=== PATIENT | male | born 1960 | race Caucasian/White ===

== ENCOUNTER 2018-02-21 17:26 | Emergency (ER) | payer OTHER ==
[~2018-02-21] VITALS: Ht 175.3 cm; Wt 52.7 kg
[2018-02-21 18:10] VITALS: BP 156/94; PULSE 91; RESP 18; TEMP 98.2
--- NOTE | 2018-02-21 18:18 | PD ---
HPI Chief Complaint: Psychiatric Symptoms Time Seen by Provider: 17:58 Travel History International Travel<30 days: No Contact w/Intl Traveler<30days: No History of Present Illness HPI Patient is 57-year-old male presenting to the emergency department for psychiatric evaluation under Chin act. Per the Chin act report patient reported that he was tired of living, he states that he had a knife was going to kill himself. He reports that he was upset because his girlfriend who has schizophrenia has not been taking her medications because they cannot afford them. Patient reports that he tried to commit suicide last week using the same method however he has no cuts or knife gore on him. He reports a history of depression, tobacco use but denies any illicit drug use. He denies any other medical history. He denies any hallucinations or homicidal ideations. 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 [facility] Past Medical History Medical History: Denies Significant Hx Social History Alcohol Use: Yes Tobacco Use: Yes Substance Use: No Allergies-Medications (Allergen,Severity, Reaction): Coded Allergies: Penicillins (Verified Allergy, Unknown, 02/21/18) Reported Meds & Prescriptions Reported Meds & Active Scripts Active No Active Prescriptions or Reported Medications Review of Systems Except as stated in HPI: all other systems reviewed are Neg Psychiatric: Positive: Depression, Suicidal Ideations, Substance Abuse Physical Exam Narrative GENERAL: Well-developed, well-nourished, alert male. Presenting in no acute distress. SKIN: Warm and dry. HEAD: Atraumatic. Normocephalic. EYES: Pupils equal and round. No scleral icterus. No injection or drainage. ENT: No nasal bleeding or discharge. Mucous membranes pink and moist. NECK: Trachea midline. No JVD. CARDIOVASCULAR: Regular rate and rhythm. RESPIRATORY: No accessory muscle use. Clear to auscultation. Breath sounds equal bilaterally. GASTROINTESTINAL: Abdomen soft, non-tender, nondistended. Hepatic and splenic margins not palpable. MUSCULOSKELETAL: Extremities without clubbing, cyanosis, or edema. No obvious deformities. NEUROLOGICAL: Awake and alert. No obvious cranial nerve deficits. Motor grossly within normal limits. Five out of 5 muscle strength in the arms and legs. Normal speech. PSYCHIATRIC: Depressed mood and affect; insight and judgment normal. Data Data Last Documented VS Vital Signs Date Time Temp Pulse Resp B/P (MAP) Pulse Ox O2 Delivery O2 Flow Rate FiO2 02/22/18 06:31 97.2 91 20 191/112 (138) 93 02/22/18 00:58 Room Air Orders Orders Complete Blood Count With Diff (02/21/18 17:57) Comprehensive Metabolic Panel (02/21/18 17:57) Thyroid Stimulating Hormone (02/21/18 17:57) Psych Screen (02/21/18 17:57) Drug Screen, Random Urine (02/21/18 17:57) Alcohol (Ethanol) (02/21/18 17:57) Ibuprofen (Motrin) (02/21/18 18:45) Cyclobenzaprine (Flexeril) (02/21/18 18:45) Diet Regular Basic (02/21/18 Dinner) Alcohol Withdrawal Asmt-Ciwa ONCE (02/21/18 18:33) Acetaminophen (Tylenol) (02/21/18 18:45) Ibuprofen (Motrin) (02/21/18 18:45) Albuterol Neb (Albuterol Neb) (02/21/18 18:45) Flumazenil Inj (Romazicon Inj) (02/21/18 18:45) Lorazepam (Ativan) (02/21/18 18:45) Lorazepam Inj (Ativan Inj) (02/21/18 18:45) Lorazepam (Ativan) (02/21/18 18:45) Lorazepam Inj (Ativan Inj) (02/21/18 18:45) Lorazepam Inj (Ativan Inj) (02/21/18 18:45) Lorazepam Inj (Ativan Inj) (02/21/18 18:45) Ibuprofen (Motrin) (02/22/18 01:30) Diet Regular Basic (02/22/18 Breakfast) Diet Regular Basic (02/22/18 Lunch) Labs Laboratory Tests Test 02/21/18 18:04 02/22/18 01:00 White Blood Count 5.8 TH/MM3 Red Blood Count 4.32 MIL/MM3 Hemoglobin 14.2 GM/DL Hematocrit 41.8 % Mean Corpuscular Volume 96.9 FL Mean Corpuscular Hemoglobin 32.9 PG Mean Corpuscular Hemoglobin Concent 34.0 % Red Cell Distribution Width 13.4 % Platelet Count 160 TH/MM3 Mean Platelet Volume 8.4 FL Neutrophils (%) (Auto) 41.3 % Lymphocytes (%) (Auto) 43.1 % Monocytes (%) (Auto) 9.9 % Eosinophils (%) (Auto) 4.3 % Basophils (%) (Auto) 1.4 % Neutrophils # (Auto) 2.4 TH/MM3 Lymphocytes # (Auto) 2.5 TH/MM3 Monocytes # (Auto) 0.6 TH/MM3 Eosinophils # (Auto) 0.3 TH/MM3 Basophils # (Auto) 0.1 TH/MM3 CBC Comment DIFF FINAL Differential Comment Blood Urea Nitrogen 5 MG/DL Creatinine 0.71 MG/DL Random Glucose 87 MG/DL Total Protein 8.1 GM/DL Albumin 3.3 GM/DL Calcium Level 8.7 MG/DL Alkaline Phosphatase 279 U/L Aspartate Amino Transf (AST/SGOT) 116 U/L Alanine Aminotransferase (ALT/SGPT) 70 U/L Total Bilirubin 0.6 MG/DL Sodium Level 138 MEQ/L Potassium Level 3.7 MEQ/L Chloride Level 103 MEQ/L Carbon Dioxide Level 23.4 MEQ/L Anion Gap 12 MEQ/L Estimat Glomerular Filtration Rate 115 ML/MIN Thyroid Stimulating Hormone 3rd Gen 1.990 uIU/ML Ethyl Alcohol Level 298 MG/DL Urine Opiates Screen NEG Urine Barbiturates Screen NEG Urine Amphetamines Screen NEG Urine Benzodiazepines Screen NEG Urine Cocaine Screen NEG Urine Cannabinoids Screen NEG MDM Medical Decision Making Medical Screen Exam Complete: Yes Emergency Medical Condition: Yes Interpretation(s) Laboratory Tests Test 02/21/18 18:04 02/22/18 01:00 White Blood Count 5.8 TH/MM3 Red Blood Count 4.32 MIL/MM3 Hemoglobin 14.2 GM/DL Hematocrit 41.8 % Mean Corpuscular Volume 96.9 FL Mean Corpuscular Hemoglobin 32.9 PG Mean Corpuscular Hemoglobin Concent 34.0 % Red Cell Distribution Width 13.4 % Platelet Count 160 TH/MM3 Mean Platelet Volume 8.4 FL Neutrophils (%) (Auto) 41.3 % Lymphocytes (%) (Auto) 43.1 % Monocytes (%) (Auto) 9.9 % Eosinophils (%) (Auto) 4.3 % Basophils (%) (Auto) 1.4 % Neutrophils # (Auto) 2.4 TH/MM3 Lymphocytes # (Auto) 2.5 TH/MM3 Monocytes # (Auto) 0.6 TH/MM3 Eosinophils # (Auto) 0.3 TH/MM3 Basophils # (Auto) 0.1 TH/MM3 CBC Comment DIFF FINAL Differential Comment Blood Urea Nitrogen 5 MG/DL Creatinine 0.71 MG/DL Random Glucose 87 MG/DL Total Protein 8.1 GM/DL Albumin 3.3 GM/DL Calcium Level 8.7 MG/DL Alkaline Phosphatase 279 U/L Aspartate Amino Transf (AST/SGOT) 116 U/L Alanine Aminotransferase (ALT/SGPT) 70 U/L Total Bilirubin 0.6 MG/DL Sodium Level 138 MEQ/L Potassium Level 3.7 MEQ/L Chloride Level 103 MEQ/L Carbon Dioxide Level 23.4 MEQ/L Anion Gap 12 MEQ/L Estimat Glomerular Filtration Rate 115 ML/MIN Thyroid Stimulating Hormone 3rd Gen 1.990 uIU/ML Ethyl Alcohol Level 298 MG/DL Urine Opiates Screen NEG Urine Barbiturates Screen NEG Urine Amphetamines Screen NEG Urine Benzodiazepines Screen NEG Urine Cocaine Screen NEG Urine Cannabinoids Screen NEG Vital Signs Date Time Temp Pulse Resp B/P (MAP) Pulse Ox O2 Delivery O2 Flow Rate FiO2 02/21/18 18:10 98.2 91 18 156/94 (114) Differential Diagnosis Mood disorder versus substance abuse versus intoxication versus metabolic abnormality versus psychosis versus other Narrative Course Patient is 57-year-old male presenting under Chin act for psychiatric evaluation. He does report drinking alcohol daily, he had 4 beers today. Mental health screening discussed with the patient. Psychiatric screen ordered. Patient reported pain in his left shoulder. Ibuprofen and Flexeril ordered. Patient was placed on CIWA protocol. Labs reviewed, no acute findings identified. Patient is medically clear for psychiatric evaluation. Blood alcohol level is elevated 268. Diagnosis Primary Impression: Medical clearance for psychiatric admission Additional Impression: Alcohol intoxication Qualified Codes: F10.920 - Alcohol use, unspecified with intoxication, uncomplicated Scripts No Active Prescriptions or Reported Meds Condition: Jannie Vazquez Feb 21, 2018 18:18
[2018-02-21 18:34] LABS: AUTOMATED NEUTROPHIL # 2.4 TH/MM3 (1.8-7.7); BASOPHIL # 0.1 TH/MM3 (0-0.2); BASOPHIL % 1.4 % (0.0-2.0); EOSINOPHIL # 0.3 TH/MM3 (0-0.4); EOSINOPHIL % 4.3 % (0.0-4.0); HEMATOCRIT 41.8 % (39.0-51.0); HEMOGLOBIN 14.2 GM/DL (13.0-17.0); LYMPH % 43.1 % (9.0-44.0); LYMPHOCYTE # 2.5 TH/MM3 (1.0-4.8); MEAN CELL VOLUME 96.9 FL (80.0-100.0); MEAN CORPUSCULAR HEMOGLOBIN 32.9 PG (27.0-34.0); MEAN PLATELET VOLUME 8.4 FL (7.0-11.0); MONO % 9.9 % (0.0-8.0); MONOCYTE # 0.6 TH/MM3 (0-0.9); NEUT % 41.3 % (16.0-70.0); PLATELET COUNT 160 TH/MM3 (150-450); RED BLOOD COUNT 4.32 MIL/MM3 (4.50-5.90); RED CELL DISTRIBUTION WIDTH 13.4 % (11.6-17.2); WHITE BLOOD COUNT 5.8 TH/MM3 (4.0-11.0)
[2018-02-21] MEDS ORDERED: RESP: ALBUTEROL 2.5 MG/3 ML NEB (PRN) NEB (18:45)
[2018-02-21] MEDS ORDERED: IBUPROFEN 600 MG TAB PO PRN (18:45)
[2018-02-21] MEDS ORDERED: FLUMAZENIL 0.5 MG/5 ML VIAL IV PUSH PRN (18:45)
[2018-02-21] MEDS ORDERED: CYCLOBENZAPRINE HCL 10 MG TAB PO ONE (18:45)
[2018-02-21] MEDS ORDERED: IBUPROFEN 800 MG TAB PO ONE (18:45)
[2018-02-21] MEDS ORDERED: LORazepam 1 MG TAB PO PRN (18:45)
[2018-02-21] MEDS ORDERED: LORazepam 2 MG/ML VIAL IV PUSH PRN ×4 (18:45)
[2018-02-21 18:52] LABS: ALBUMIN 3.3 GM/DL (3.4-5.0); AST (GOT) 116 U/L (15-37); BICARBONATE 23.4 MEQ/L (21.0-32.0); BLOOD UREA NITROGEN 5 MG/DL (7-18); CALCIUM 8.7 MG/DL (8.5-10.1); CHLORIDE 103 MEQ/L (98-107); CREATININE 0.71 MG/DL (0.60-1.30); GLOMERULAR FILTRATION RATE 115 ML/MIN (>89); GLUCOSE,RANDOM 87 MG/DL (74-106); SODIUM (NA) 138 MEQ/L (136-145)
[2018-02-21 19:04] LABS: ALKALINE PHOSPHATASE 279 U/L (45-117); ALT (GPT) 70 U/L (12-78); TOTAL BILIRUBIN ADULT 0.6 MG/DL (0.2-1.0); TOTAL PROTEIN 8.1 GM/DL (6.4-8.2)
[2018-02-22] VITALS (7 sets, daily range): BP systolic 161–201; BP diastolic 104–124; PULSE 73–103; RESP 16–20; TEMP 97.2–98.7; O2SAT 93–96
[2018-02-22] MEDS ORDERED: IBUPROFEN 600 MG TAB PO ONE (01:30)
[2018-02-22] MEDS: ACETAMINOPHEN 325 MG TAB PO PRN ×2 (01:51→21:49)
[2018-02-22] MEDS: LORazepam 2 MG TAB PO PRN ×2 (01:51→06:35)
[2018-02-22] MEDS ORDERED: LORazepam 2 MG/ML VIAL IM ONE (18:45)
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
[2018-02-22] MEDS ORDERED: cloNIDine HCL 0.2 MG TAB PO ONE (20:15)
[2018-02-23 00:50] VITALS: BP 169/110; PULSE 90; RESP 16; O2SAT 96
[2018-02-23 02:38] VITALS: BP 140/98; PULSE 86; RESP 16; O2SAT 97
[2018-02-23] MEDS: LORazepam 2 MG TAB PO PRN (08:55)
[2018-02-23 08:58] VITALS: BP 149/99; PULSE 122; RESP 21; O2SAT 97
[2018-02-23] MEDS ORDERED: LISINOPRIL 10 MG TAB PO ONE (09:15)
[2018-02-23 10:11] VITALS: BP 131/98; PULSE 130; RESP 19; O2SAT 98
[2018-02-23 15:09] VITALS: BP 113/86; PULSE 94; RESP 17; O2SAT 98
[2018-02-23 20:17] VITALS: BP 122/72; PULSE 88; RESP 18; TEMP 98; O2SAT 98
== END 2018-02-23 20:24 | disposition home or self-care (01) ==
LOC: NEDAMB 17:26 → NEPD 02-23 20:24
DX: F10.129 Alcohol abuse with intoxication, unspecified (principal); Y90.8 Blood alcohol level of 240 mg/100 ml or more; F32.9 Major depressive disorder, single episode, unspecified; M25.512 Pain in left shoulder; F17.200 Nicotine dependence, unspecified, uncomplicated
CPT/HCPCS: 80053; 80307; 84443; 85025; 96372; 99283; J2060

== ENCOUNTER 2018-02-27 16:37 | Emergency (ER) | payer SELFPAY ==
[~2018-02-27] VITALS: Ht 175.3 cm; Wt 55.0 kg
[2018-02-27 17:25] VITALS: BP 164/99; PULSE 77; RESP 20; TEMP 97.5; O2SAT 97
[2018-02-27 17:35] VITALS: BP 145/94; PULSE 78; RESP 16; TEMP 98.7; O2SAT 98
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
[2018-02-27] MEDS ORDERED: LORazepam 2 MG TAB PO PRN (18:30)
[2018-02-27] MEDS ORDERED: FLUMAZENIL 0.5 MG/5 ML VIAL IV PUSH PRN (18:30)
[2018-02-27] MEDS ORDERED: LORazepam 2 MG/ML VIAL IV PUSH PRN ×4 (18:30)
[2018-02-27] MEDS ORDERED: LORazepam 1 MG TAB PO PRN (18:30)
[2018-02-27 18:50] LABS: AUTOMATED NEUTROPHIL # 2.7 TH/MM3 (1.8-7.7); BASOPHIL % 0.3 % (0.0-2.0); EOSINOPHIL # 0.1 TH/MM3 (0-0.4); EOSINOPHIL % 2.5 % (0.0-4.0); HEMATOCRIT 38.5 % (39.0-51.0); HEMOGLOBIN 13.4 GM/DL (13.0-17.0); LYMPH % 39.8 % (9.0-44.0); LYMPHOCYTE # 2.3 TH/MM3 (1.0-4.8); MEAN CELL VOLUME 97.1 FL (80.0-100.0); MEAN CORPUSCULAR HEMOGLOBIN 33.8 PG (27.0-34.0); MEAN CORPUSCULAR HGB CONC 34.9 % (32.0-36.0); MEAN PLATELET VOLUME 8.9 FL (7.0-11.0); MONO % 10.4 % (0.0-8.0); MONOCYTE # 0.6 TH/MM3 (0-0.9); PLATELET COUNT 175 TH/MM3 (150-450); RED BLOOD COUNT 3.97 MIL/MM3 (4.50-5.90); RED CELL DISTRIBUTION WIDTH 13.4 % (11.6-17.2); WHITE BLOOD COUNT 5.8 TH/MM3 (4.0-11.0)
[2018-02-27 19:21] LABS: AST (GOT) 102 U/L (15-37); BICARBONATE 23.2 MEQ/L (21.0-32.0); BLOOD UREA NITROGEN 7 MG/DL (7-18); CHLORIDE 103 MEQ/L (98-107); CREATININE 0.67 MG/DL (0.60-1.30); GLOMERULAR FILTRATION RATE 123 ML/MIN (>89); GLUCOSE,RANDOM 84 MG/DL (74-106); SODIUM (NA) 138 MEQ/L (136-145)
[2018-02-27 19:33] LABS: ALKALINE PHOSPHATASE 215 U/L (45-117); ALT (GPT) 61 U/L (12-78); TOTAL BILIRUBIN ADULT 0.3 MG/DL (0.2-1.0); TOTAL PROTEIN 7.6 GM/DL (6.4-8.2)
[2018-02-27 19:42] LABS: ACETAMINOPHEN LESS THAN 2.0 MCG/ML (10.0-30.0)
--- NOTE | 2018-02-27 20:33 | PD ---
Physical Exam Date Seen by Provider: Feb 27, 2018 Time Seen by Provider: 20:31 Data Data Last Documented VS Vital Signs Date Time Temp Pulse Resp B/P (MAP) Pulse Ox O2 Delivery O2 Flow Rate FiO2 02/27/18 17:35 98.7 78 16 145/94 (111) 98 02/27/18 17:25 Room Air Orders Orders Complete Blood Count With Diff (02/27/18 18:14) Comprehensive Metabolic Panel (02/27/18 18:14) Thyroid Stimulating Hormone (02/27/18 18:14) Psych Screen (02/27/18 18:14) Drug Screen, Random Urine (02/27/18 18:14) Alcohol (Ethanol) (02/27/18 18:14) Salicylates (Aspirin) (02/27/18 18:14) Tylenol (Acetaminophen) (02/27/18 18:14) Alcohol Withdrawal Asmt-Ciwa ONCE (02/27/18 18:23) Flumazenil Inj (Romazicon Inj) (02/27/18 18:30) Lorazepam (Ativan) (02/27/18 18:30) Lorazepam Inj (Ativan Inj) (02/27/18 18:30) Lorazepam (Ativan) (02/27/18 18:30) Lorazepam Inj (Ativan Inj) (02/27/18 18:30) Lorazepam Inj (Ativan Inj) (02/27/18 18:30) Lorazepam Inj (Ativan Inj) (02/27/18 18:30) Labs Laboratory Tests Test 02/27/18 18:30 White Blood Count 5.8 TH/MM3 Red Blood Count 3.97 MIL/MM3 Hemoglobin 13.4 GM/DL Hematocrit 38.5 % Mean Corpuscular Volume 97.1 FL Mean Corpuscular Hemoglobin 33.8 PG Mean Corpuscular Hemoglobin Concent 34.9 % Red Cell Distribution Width 13.4 % Platelet Count 175 TH/MM3 Mean Platelet Volume 8.9 FL Neutrophils (%) (Auto) 47.0 % Lymphocytes (%) (Auto) 39.8 % Monocytes (%) (Auto) 10.4 % Eosinophils (%) (Auto) 2.5 % Basophils (%) (Auto) 0.3 % Neutrophils # (Auto) 2.7 TH/MM3 Lymphocytes # (Auto) 2.3 TH/MM3 Monocytes # (Auto) 0.6 TH/MM3 Eosinophils # (Auto) 0.1 TH/MM3 Basophils # (Auto) 0.0 TH/MM3 CBC Comment DIFF FINAL Differential Comment Blood Urea Nitrogen 7 MG/DL Creatinine 0.67 MG/DL Random Glucose 84 MG/DL Total Protein 7.6 GM/DL Albumin 3.0 GM/DL Calcium Level 8.0 MG/DL Alkaline Phosphatase 215 U/L Aspartate Amino Transf (AST/SGOT) 102 U/L Alanine Aminotransferase (ALT/SGPT) 61 U/L Total Bilirubin 0.3 MG/DL Sodium Level 138 MEQ/L Potassium Level 3.7 MEQ/L Chloride Level 103 MEQ/L Carbon Dioxide Level 23.2 MEQ/L Anion Gap 12 MEQ/L Estimat Glomerular Filtration Rate 123 ML/MIN Thyroid Stimulating Hormone 3rd Gen 0.529 uIU/ML Salicylates Level 6.5 MG/DL Acetaminophen Level LESS THAN 2.0 MCG/ML Ethyl Alcohol Level 326 MG/DL [facility] Medical Record Reviewed: Yes Supervised Visit with ALLISON: No Interpretation(s) Laboratory Tests Test 02/27/18 18:30 White Blood Count 5.8 TH/MM3 Red Blood Count 3.97 MIL/MM3 Hemoglobin 13.4 GM/DL Hematocrit 38.5 % Mean Corpuscular Volume 97.1 FL Mean Corpuscular Hemoglobin 33.8 PG Mean Corpuscular Hemoglobin Concent 34.9 % Red Cell Distribution Width 13.4 % Platelet Count 175 TH/MM3 Mean Platelet Volume 8.9 FL Neutrophils (%) (Auto) 47.0 % Lymphocytes (%) (Auto) 39.8 % Monocytes (%) (Auto) 10.4 % Eosinophils (%) (Auto) 2.5 % Basophils (%) (Auto) 0.3 % Neutrophils # (Auto) 2.7 TH/MM3 Lymphocytes # (Auto) 2.3 TH/MM3 Monocytes # (Auto) 0.6 TH/MM3 Eosinophils # (Auto) 0.1 TH/MM3 Basophils # (Auto) 0.0 TH/MM3 CBC Comment DIFF FINAL Differential Comment Blood Urea Nitrogen 7 MG/DL Creatinine 0.67 MG/DL Random Glucose 84 MG/DL Total Protein 7.6 GM/DL Albumin 3.0 GM/DL Calcium Level 8.0 MG/DL Alkaline Phosphatase 215 U/L Aspartate Amino Transf (AST/SGOT) 102 U/L Alanine Aminotransferase (ALT/SGPT) 61 U/L Total Bilirubin 0.3 MG/DL Sodium Level 138 MEQ/L Potassium Level 3.7 MEQ/L Chloride Level 103 MEQ/L Carbon Dioxide Level 23.2 MEQ/L Anion Gap 12 MEQ/L Estimat Glomerular Filtration Rate 123 ML/MIN Thyroid Stimulating Hormone 3rd Gen 0.529 uIU/ML Salicylates Level 6.5 MG/DL Acetaminophen Level LESS THAN 2.0 MCG/ML Ethyl Alcohol Level 326 MG/DL Differential Diagnosis MDM: High Differential diagnoses: Schizophrenia, schizoaffective disorder, bipolar, anxiety, depression, adjustment reaction, mood disorder NOS, ODD, depressive disorder NOS, dementia, dementia with agitation, psychosis NOS, substance induced mood disorder, DMDD, Asperger syndrome, infection,electrolyte abnormality, malingering. Narrative Course Mental health screening discussed with the patient. Psychiatric screen ordered. The patient's been medically cleared. This is medical clearance for psychiatric admission, alcohol intoxication Diagnosis Primary Impression: Medical clearance for psychiatric admission Additional Impression: Alcohol intoxication Scripts No Active Prescriptions or Reported Meds Condition: Stable Prabhakar El Feb 27, 2018 20:33
[2018-02-27 23:53] VITALS: BP 135/75; PULSE 106; RESP 18; O2SAT 97
--- NOTE | 2018-02-28 10:30 | PD ---
Physical Exam Date Seen by Provider: Feb 28, 2018 Time Seen by Provider: 10:27 Narrative Patient is a 57-year-old male that presented to emerge department voluntarily for psychiatric evaluation. Please see previous notes for full H&P. Data Data Last Documented VS Vital Signs Date Time Temp Pulse Resp B/P (MAP) Pulse Ox O2 Delivery O2 Flow Rate FiO2 02/27/18 23:53 106 18 135/75 (95) 97 Room Air 02/27/18 17:35 98.7 Orders Orders Complete Blood Count With Diff (02/27/18 18:14) Comprehensive Metabolic Panel (02/27/18 18:14) Thyroid Stimulating Hormone (02/27/18 18:14) Psych Screen (02/27/18 18:14) Drug Screen, Random Urine (02/27/18 18:14) Alcohol (Ethanol) (02/27/18 18:14) Salicylates (Aspirin) (02/27/18 18:14) Tylenol (Acetaminophen) (02/27/18 18:14) Alcohol Withdrawal Asmt-Ciwa ONCE (02/27/18 18:23) Flumazenil Inj (Romazicon Inj) (02/27/18 18:30) Lorazepam (Ativan) (02/27/18 18:30) Lorazepam Inj (Ativan Inj) (02/27/18 18:30) Lorazepam (Ativan) (02/27/18 18:30) Lorazepam Inj (Ativan Inj) (02/27/18 18:30) Lorazepam Inj (Ativan Inj) (02/27/18 18:30) Lorazepam Inj (Ativan Inj) (02/27/18 18:30) Diet Regular Basic (02/28/18 Breakfast) Ed Discharge Order (02/28/18 10:26) Labs Laboratory Tests Test 02/27/18 18:30 White Blood Count 5.8 TH/MM3 Red Blood Count 3.97 MIL/MM3 Hemoglobin 13.4 GM/DL Hematocrit 38.5 % Mean Corpuscular Volume 97.1 FL Mean Corpuscular Hemoglobin 33.8 PG Mean Corpuscular Hemoglobin Concent 34.9 % Red Cell Distribution Width 13.4 % Platelet Count 175 TH/MM3 Mean Platelet Volume 8.9 FL Neutrophils (%) (Auto) 47.0 % Lymphocytes (%) (Auto) 39.8 % Monocytes (%) (Auto) 10.4 % Eosinophils (%) (Auto) 2.5 % Basophils (%) (Auto) 0.3 % Neutrophils # (Auto) 2.7 TH/MM3 Lymphocytes # (Auto) 2.3 TH/MM3 Monocytes # (Auto) 0.6 TH/MM3 Eosinophils # (Auto) 0.1 TH/MM3 Basophils # (Auto) 0.0 TH/MM3 CBC Comment DIFF FINAL Differential Comment Blood Urea Nitrogen 7 MG/DL Creatinine 0.67 MG/DL Random Glucose 84 MG/DL Total Protein 7.6 GM/DL Albumin 3.0 GM/DL Calcium Level 8.0 MG/DL Alkaline Phosphatase 215 U/L Aspartate Amino Transf (AST/SGOT) 102 U/L Alanine Aminotransferase (ALT/SGPT) 61 U/L Total Bilirubin 0.3 MG/DL Sodium Level 138 MEQ/L Potassium Level 3.7 MEQ/L Chloride Level 103 MEQ/L Carbon Dioxide Level 23.2 MEQ/L Anion Gap 12 MEQ/L Estimat Glomerular Filtration Rate 123 ML/MIN Thyroid Stimulating Hormone 3rd Gen 0.529 uIU/ML Salicylates Level 6.5 MG/DL Acetaminophen Level LESS THAN 2.0 MCG/ML Ethyl Alcohol Level 326 MG/DL [facility] Medical Record Reviewed: Yes Supervised Visit with ALLISON: No Interpretation(s) Laboratory Tests Test 02/27/18 18:30 White Blood Count 5.8 TH/MM3 Red Blood Count 3.97 MIL/MM3 Hemoglobin 13.4 GM/DL Hematocrit 38.5 % Mean Corpuscular Volume 97.1 FL Mean Corpuscular Hemoglobin 33.8 PG Mean Corpuscular Hemoglobin Concent 34.9 % Red Cell Distribution Width 13.4 % Platelet Count 175 TH/MM3 Mean Platelet Volume 8.9 FL Neutrophils (%) (Auto) 47.0 % Lymphocytes (%) (Auto) 39.8 % Monocytes (%) (Auto) 10.4 % Eosinophils (%) (Auto) 2.5 % Basophils (%) (Auto) 0.3 % Neutrophils # (Auto) 2.7 TH/MM3 Lymphocytes # (Auto) 2.3 TH/MM3 Monocytes # (Auto) 0.6 TH/MM3 Eosinophils # (Auto) 0.1 TH/MM3 Basophils # (Auto) 0.0 TH/MM3 CBC Comment DIFF FINAL Differential Comment Blood Urea Nitrogen 7 MG/DL Creatinine 0.67 MG/DL Random Glucose 84 MG/DL Total Protein 7.6 GM/DL Albumin 3.0 GM/DL Calcium Level 8.0 MG/DL Alkaline Phosphatase 215 U/L Aspartate Amino Transf (AST/SGOT) 102 U/L Alanine Aminotransferase (ALT/SGPT) 61 U/L Total Bilirubin 0.3 MG/DL Sodium Level 138 MEQ/L Potassium Level 3.7 MEQ/L Chloride Level 103 MEQ/L Carbon Dioxide Level 23.2 MEQ/L Anion Gap 12 MEQ/L Estimat Glomerular Filtration Rate 123 ML/MIN Thyroid Stimulating Hormone 3rd Gen 0.529 uIU/ML Salicylates Level 6.5 MG/DL Acetaminophen Level LESS THAN 2.0 MCG/ML Ethyl Alcohol Level 326 MG/DL Vital Signs Date Time Temp Pulse Resp B/P (MAP) Pulse Ox O2 Delivery O2 Flow Rate FiO2 02/27/18 23:53 106 18 135/75 (95) 97 Room Air 02/27/18 17:35 98.7 78 16 145/94 (111) 98 02/27/18 17:25 97.5 77 20 164/99 (120) 97 Room Air Narrative Course Patient is a 57-year-old male presenting voluntarily for psychiatric evaluation. Patient was seen and evaluated, medically cleared in the emergency department. He was requesting to leave stating he would follow up at [facility]. Patient is well-known to the emergency department. Patient will be discharged again with [facility]. Diagnosis Primary Impression: Alcohol intoxication Qualified Codes: F10.920 - Alcohol use, unspecified with intoxication, uncomplicated Additional Impression: Alcohol dependence Qualified Codes: F10.20 - Alcohol dependence, uncomplicated Referrals: [facility] 1 day Patient Instructions: Abuse of Alcohol (ED), Alcohol Dependence (ED), General Instructions Additional Instruction: Follow-up with [facility] Return to emergency department any new or worsening symptoms Avoid alcohol intake Drink more water Med/Other Pt SpecificInfo: No Change to Meds Scripts No Active Prescriptions or Reported Meds Disposition: 01 DISCHARGE HOME Condition: Stable AmadeoRominaCharleyhali GORE Feb 28, 2018 10:30
== END 2018-02-28 10:59 | disposition home or self-care (01) ==
LOC: NEPJ 16:37
DX: F10.229 Alcohol dependence with intoxication, unspecified (principal); F17.200 Nicotine dependence, unspecified, uncomplicated; Y90.8 Blood alcohol level of 240 mg/100 ml or more
CPT/HCPCS: 80053; 80307; 84443; 85025; 99283

== ENCOUNTER 2018-03-01 21:21 | Emergency (ER) | payer OTHER ==
[~2018-03-01] VITALS: Ht 175.3 cm; Wt 75.0 kg
--- NOTE | 2018-03-01 21:53 | PD ---
HPI Chief Complaint: Chin act Time Seen by Provider: 21:45 Travel History International Travel<30 days: No Contact w/Intl Traveler<30days: No Traveled to known affect area: No History of Present Illness HPI 57-year-old white male presents emergency department under Chin act by PD. Patient had been drinking alcohol today. He contacted PD notifying them he was acutely suicidal. Patient states that he has no current plan on self-harm but wants to . He reports that he contracted HIV from his current of 1 year. He states that he did not know that she was HIV positive. The patient reports allegedly just finding out in the last 2 weeks that he was HIV positive. He is not on any medications currently. He admits to chronic alcohol abuse. He denies any toxic ingestions. No homicidal ideation. History of chronic COPD continue to smoke and drink. PFSH Past Medical History Narrative Medical Allegedly HIV positive, asthma, COPD, alcoholism AAA: No ADD: No ADHD: No Alzheimer's Disease: No Anemia: No Arthritis: No Asthma: Yes Atrial Fibrillation: No Autoimmune Disease: No Blood Disorders: No Bipolar Disorder: No Anxiety: No Depression: No Heart Rhythm Problems: No Cancer: No Cardiac Catheterization: No Cardiomyopathy: No Cardiovascular Problems: Yes Cerebral Palsy: No High Cholesterol: No Chemotherapy: No Chest Pain: No Congestive Heart Failure: No Cirrhosis: No COPD: Yes Cerebrovascular Accident: No Coronary Artery Disease: No Cystic Fibrosis: No Dementia: No Developmental Delay: No Diabetes: No Dialysis: No Diminished Hearing: No Diverticulitis: No Deep Vein Thrombosis: No Endocrine: No Fibromyalgia: No Gastrointestinal Disorders: No Genetic Disorder: No GERD: No Glaucoma: No Gout: No Genitourinary: No Headaches: No Hepatitis: Yes Hiatal Hernia: No Heparin Induced Thrombocytopen: No Herniated Disk: Yes Hypertension: Yes Immune Disorder: No Inguinal Hernia: No Implanted Vascular Access Dvce: No Insomnia: No Kidney Stones: No Musculoskeletal: No Neurologic: No Parkinson's Disease: No Psychiatric: No Reproductive: No Respiratory: Yes Resp. Syncytial Virus (RSV): No Integumentary: No Migraines: No Myocardial Infarction: No Pancreatitis: No Pneumonia: No Radiation Therapy: No Renal Failure: No Schizophrenia: No Seizures: No Shingles: No Sickle Cell Disease: No Sleep Apnea: No Thyroid Disease: No Triglycerides - High: No Ulcer: No Tetanus Vaccination: Unknown Past Surgical History Abdominal Aneurysm Repair: No Abdominal Surgery: No AICD: No Appendectomy: No Arteriovenous Shunt: No Cardiac Surgery: No Cholecystectomy: No Coronary Artery Bypass Graft: No Coronary Stent: No Ear Surgery: No Endocrine Surgery: No Eye Surgery: No Genitourinary Surgery: No Gynecologic Surgery: No Insulin Pump: No Joint Replacement: No Mastectomy: No Neurologic Surgery: No Oral Surgery: No Pacemaker: No Prostatectomy: No Thoracic Surgery: No Tonsillectomy: Yes Tympanostomy Tube: No Valve Replacement: No Other Surgery: No Family History Family Hypercholesterolemia: No Social History Alcohol Use: Yes Tobacco Use: Yes Substance Use: Yes Allergies-Medications (Allergen,Severity, Reaction): Coded Allergies: Penicillins (Verified Allergy, Unknown, 03/01/18) Reported Meds & Prescriptions Reported Meds & Active Scripts Active No Active Prescriptions or Reported Medications Review of Systems General / Constitutional: No: Fever Eyes: No: Visual changes HENT: No: Headaches Cardiovascular: No: Chest Pain or Discomfort Respiratory: Positive: Cough, Shortness of Breath, Wheezing Gastrointestinal: No: Abdominal Pain Genitourinary: No: Dysuria Musculoskeletal: No: Pain Skin: No Rash Neurologic: No: Weakness Psychiatric: Positive: Depression, Suicidal Ideations, Mood Disorder, Substance Abuse (Alcohol), No: Anxiety, Disorder of Thought, Homicidal Ideation Endocrine: No: Polydipsia Hematologic/Lymphatic: No: Easy Bruising Physical Exam Narrative GENERAL: Well-nourished, well-developed patient. Patient smells of EtOH. He appears intoxicated. SKIN: Warm and dry. Patient has healing abrasions. No acute injuries. HEAD: Normocephalic and atraumatic. EYES: No scleral icterus. No injection or drainage. ENT: No nasal drainage noted. Mucous membranes pink. Airway patent. NECK: Supple, trachea midline. Moves head freely without obvious discomfort. CARDIOVASCULAR: Regular rate and rhythm without murmurs, gallops, or rubs. RESPIRATORY: Decreased breath sounds equal bilaterally. Scattered rhonchi with few expiratory wheezes. No accessory muscle use. GASTROINTESTINAL: Abdomen soft, non-tender, nondistended. EXTREMITIES: No cyanosis or edema. BACK: Nontender without obvious deformity. No CVA tenderness. NEURO: Patient is alert and oriented. no sensorimotor deficits. Slurred n patient is ataxic secondary to alcohol. speech. PSYCH: No delusions. No auditory or visual hallucinations. Data Data Last Documented VS Vital Signs Date Time Temp Pulse Resp B/P (MAP) Pulse Ox O2 Delivery O2 Flow Rate FiO2 03/01/18 22:56 98.4 93 18 134/76 (95) 93 03/01/18 22:46 Room Air Orders Orders Comprehensive Metabolic Panel (03/01/18 21:48) Psych Screen (03/01/18 21:48) Drug Screen, Random Urine (03/01/18 21:48) Alcohol (Ethanol) (03/01/18 21:48) Salicylates (Aspirin) (03/01/18 21:48) Tylenol (Acetaminophen) (03/01/18 21:48) Labs Laboratory Tests Test 03/01/18 21:38 Blood Urea Nitrogen 6 MG/DL Creatinine 0.70 MG/DL Random Glucose 83 MG/DL Total Protein 7.7 GM/DL Albumin 3.3 GM/DL Calcium Level 8.2 MG/DL Alkaline Phosphatase 195 U/L Aspartate Amino Transf (AST/SGOT) 87 U/L Alanine Aminotransferase (ALT/SGPT) 58 U/L Total Bilirubin 0.5 MG/DL Sodium Level 137 MEQ/L Potassium Level 3.8 MEQ/L Chloride Level 99 MEQ/L Carbon Dioxide Level 23.5 MEQ/L Anion Gap 15 MEQ/L Estimat Glomerular Filtration Rate 117 ML/MIN Salicylates Level 6.4 MG/DL Urine Opiates Screen NEG Acetaminophen Level LESS THAN 2.0 MCG/ML Urine Barbiturates Screen NEG Urine Amphetamines Screen NEG Urine Benzodiazepines Screen NEG Urine Cocaine Screen NEG Urine Cannabinoids Screen NEG Ethyl Alcohol Level 339 MG/DL MDM Medical Decision Making Medical Screen Exam Complete: Yes Emergency Medical Condition: Yes Medical Record Reviewed: Yes Interpretation(s) Laboratory Tests Test 03/01/18 21:38 Blood Urea Nitrogen 6 MG/DL Creatinine 0.70 MG/DL Random Glucose 83 MG/DL Total Protein 7.7 GM/DL Albumin 3.3 GM/DL Calcium Level 8.2 MG/DL Alkaline Phosphatase 195 U/L Aspartate Amino Transf (AST/SGOT) 87 U/L Alanine Aminotransferase (ALT/SGPT) 58 U/L Total Bilirubin 0.5 MG/DL Sodium Level 137 MEQ/L Potassium Level 3.8 MEQ/L Chloride Level 99 MEQ/L Carbon Dioxide Level 23.5 MEQ/L Anion Gap 15 MEQ/L Estimat Glomerular Filtration Rate 117 ML/MIN Salicylates Level 6.4 MG/DL Urine Opiates Screen NEG Acetaminophen Level LESS THAN 2.0 MCG/ML Urine Barbiturates Screen NEG Urine Amphetamines Screen NEG Urine Benzodiazepines Screen NEG Urine Cocaine Screen NEG Urine Cannabinoids Screen NEG Ethyl Alcohol Level 339 MG/DL Differential Diagnosis MDM: High Differential diagnoses: Schizophrenia, schizoaffective disorder, bipolar, anxiety, depression, adjustment reaction, mood disorder NOS, ODD, depressive disorder NOS, psychosis NOS, substance induced mood disorder, infection, electrolyte abnormality, malingering. Narrative Course Mental health screening discussed with the patient. Psychiatric screen ordered. We will repeat his laboratory test. It appears that he was just here a few days ago for mental health evaluation and alcohol intoxication. The patient is medically cleared. Diagnosis Primary Impression: Medical clearance for psychiatric admission Scripts No Active Prescriptions or Reported Meds Condition: Prabhakar Martinez Mar 01, 2018 21:53
[2018-03-01 22:35] LABS: ALBUMIN 3.3 GM/DL (3.4-5.0); ALT (GPT) 58 U/L (12-78); AST (GOT) 87 U/L (15-37); BICARBONATE 23.5 MEQ/L (21.0-32.0); BLOOD UREA NITROGEN 6 MG/DL (7-18); CALCIUM 8.2 MG/DL (8.5-10.1); CHLORIDE 99 MEQ/L (98-107); GLOMERULAR FILTRATION RATE 117 ML/MIN (>89); GLUCOSE,RANDOM 83 MG/DL (74-106); SODIUM (NA) 137 MEQ/L (136-145)
[2018-03-01 22:37] LABS: ALKALINE PHOSPHATASE 195 U/L (45-117); TOTAL BILIRUBIN ADULT 0.5 MG/DL (0.2-1.0); TOTAL PROTEIN 7.7 GM/DL (6.4-8.2)
[2018-03-01 22:46] VITALS: BP 136/78; PULSE 84; RESP 16; TEMP 98.3; O2SAT 96
[2018-03-01 22:51] LABS: ACETAMINOPHEN LESS THAN 2.0 MCG/ML (10.0-30.0)
[2018-03-01 22:56] VITALS: BP 134/76; PULSE 93; RESP 18; TEMP 98.4; O2SAT 93
[2018-03-02 05:26] VITALS: BP 124/80; PULSE 88; RESP 18; TEMP 98.7; O2SAT 98
--- NOTE | 2018-03-02 09:39 | PD ---
Physical Exam Date Seen by Provider: Mar 02, 2018 Time Seen by Provider: 09:38 Narrative For full history and physical examination please see previous notes. Data Data Last Documented VS Vital Signs Date Time Temp Pulse Resp B/P (MAP) Pulse Ox O2 Delivery O2 Flow Rate FiO2 03/02/18 05:26 98.7 88 18 124/80 (95) 98 03/01/18 22:46 Room Air Orders Orders Comprehensive Metabolic Panel (03/01/18 21:48) Psych Screen (03/01/18 21:48) Drug Screen, Random Urine (03/01/18 21:48) Alcohol (Ethanol) (03/01/18 21:48) Salicylates (Aspirin) (03/01/18 21:48) Tylenol (Acetaminophen) (03/01/18 21:48) Diet Regular Basic (03/02/18 Breakfast) Ed Discharge Order (03/02/18 09:37) Labs Laboratory Tests Test 03/01/18 21:38 Blood Urea Nitrogen 6 MG/DL Creatinine 0.70 MG/DL Random Glucose 83 MG/DL Total Protein 7.7 GM/DL Albumin 3.3 GM/DL Calcium Level 8.2 MG/DL Alkaline Phosphatase 195 U/L Aspartate Amino Transf (AST/SGOT) 87 U/L Alanine Aminotransferase (ALT/SGPT) 58 U/L Total Bilirubin 0.5 MG/DL Sodium Level 137 MEQ/L Potassium Level 3.8 MEQ/L Chloride Level 99 MEQ/L Carbon Dioxide Level 23.5 MEQ/L Anion Gap 15 MEQ/L Estimat Glomerular Filtration Rate 117 ML/MIN Salicylates Level 6.4 MG/DL Urine Opiates Screen NEG Acetaminophen Level LESS THAN 2.0 MCG/ML Urine Barbiturates Screen NEG Urine Amphetamines Screen NEG Urine Benzodiazepines Screen NEG Urine Cocaine Screen NEG Urine Cannabinoids Screen NEG Ethyl Alcohol Level 339 MG/DL [facility] Medical Record Reviewed: Yes Supervised Visit with ALLISON: No Narrative Course Patient is a 57-year-old male that presented to emerge department under Chin act for psychiatric evaluation. He was seen and evaluated, medically cleared. Patient was then evaluated by the psychiatry department. Patient's Chin act was lifted, patient will be discharged home with a diagnosis of alcohol-induced mood disorder. Patient is to [facility]-up [facility] on outpatient basis. He was advised to avoid excessive alcohol intake. Diagnosis Primary Impression: Alcohol-induced mood disorder Referrals: [facility] day Patient Instructions: General Instructions Additional Instruction: Follow-up with [facility] Avoid excessive alcohol intake Return to emergency department for any new or worsening symptoms Med/Other Pt SpecificInfo: No Change to Meds Scripts No Active Prescriptions or Reported Meds Disposition: 01 DISCHARGE HOME Condition: Stable Jannie Childs Mar 02, 2018 09:39
--- NOTE | 2018-03-02 16:07 | PD.PSY.CON ---
Provisional Diagnosis Admission Date [place] I. Alcohol-induced mood disorder, alcohol use disorder [place] II. Deferred [place] III. Hepatitis B History of Present Illness Service Psychiatry Consult Requested By ER Reason for Consult The patient is on the Chin act Primary Care Physician No Primary Care Physician HPI The patient was seen this morning at 8 AM The patient is 57-year-old man, domiciled with fianc in [place], unemployed, with psychiatric history of alcohol use disorder, seen by psychiatry 3 times this month due to alcohol related issues, medical history of hepatitis B, HIV, COPD, who presents emergency department under Chin act by PD. Patient had been drinking alcohol today. He contacted PD notifying them he was acutely suicidal. Patient states that he has no current plan on self- harm but wants to . He reports that he contracted HIV from his current of 1 year. He states that he did not know that she was HIV positive. The patient reports allegedly just finding out in the last 2 weeks that he was HIV positive. He is not on any medications currently. He admits to chronic alcohol abuse. He denies any toxic ingestions. No homicidal ideation. Patient is now clinically sober, he does present bilateral tremors, denies symptoms of depression, anxiety, ирина and psychosis. Denies suicidal and homicidal ideation. Review of Systems Constitutional: DENIES: Diaphoretic episodes, Fatigue, Fever, Weight gain, Weight loss, Chills, Dizziness, Change in appetite, Night Sweats Endocrine: DENIES: Heat/cold intolerance, Polydipsia, Polyuria, Polyphagia Eyes: DENIES: Blurred vision, Diplopia, Eye inflammation, Eye pain, Vision loss , Photosensitivity, Double Vision Ears, nose, mouth, throat: DENIES: Tinnitus, Hearing loss, Vertigo, Nasal discharge, Oral lesions, Throat pain, Hoarseness, Ear Pain, Running Nose, Epistaxis, Sinus Pain, Toothache, Odynophagia Respiratory: DENIES: Apneas, Cough, Snoring, Wheezing, Hemoptysis, Sputum production, Shortness of breath Cardiovascular: DENIES: Chest pain, Palpitations, Syncope, Dyspnea on Exertion , PND, Lower Extremity Edema, Orthopnea, Claudication Gastrointestinal: DENIES: Abdominal pain, Black stools, Bloody stools, Constipation, Diarrhea, Nausea, Vomiting, Difficulty Swallowing, Anorexia Genitourinary: DENIES: Sexual dysfunction, Urinary frequency, Urinary incontinence, Urgency, Hematuria, Dysuria, Nocturia, Penile Discharge, Testicular Pain, Testicular Swelling Musculoskeletal: DENIES: Joint pain, Muscle aches, Stiffness, Joint Swelling, Back pain, Neck pain Integumentary: DENIES: Abnormal pigmentation, Nail changes, Pruritus, Rash Hematologic/lymphatic: DENIES: Bruising, Lymphadenopathy Immunologic/allergic: DENIES: Eczema, Urticaria Neurologic: COMPLAINS OF: Tremor, DENIES: Abnormal gait, Headache, Localized weakness, Paresthesias, Seizures, Speech Problems, Poor Balance Psychiatric: COMPLAINS OF: Anxiety, DENIES: Confusion, Mood changes, Depression , Hallucinations, Agitation, Suicidal Ideation, Homicidal Ideation, Delusions Past Family Social History Coded Allergies: Penicillins (Verified Allergy, Unknown, 03/01/18) No Active Prescriptions or Reported Meds Family Psych History No family psychiatric history Social History The patient was born and raised in [place], he losing holy heel with fianc, unemployed, Patient's Strengths (min. 2) Verbal communicate Physical Exam Vital Signs Vital Signs Date Time Temp Pulse Resp B/P (MAP) Pulse Ox O2 Delivery O2 Flow Rate FiO2 03/02/18 10:40 03/02/18 05:26 98.7 88 18 98 03/01/18 22:46 Room Air Lab Results Test 03/01/18 21:38 Blood Urea Nitrogen 6 MG/DL Creatinine 0.70 MG/DL Random Glucose 83 MG/DL Total Protein 7.7 GM/DL Albumin 3.3 GM/DL Calcium Level 8.2 MG/DL Alkaline Phosphatase 195 U/L Aspartate Amino Transf (AST/SGOT) 87 U/L Alanine Aminotransferase (ALT/SGPT) 58 U/L Total Bilirubin 0.5 MG/DL Sodium Level 137 MEQ/L Potassium Level 3.8 MEQ/L Chloride Level 99 MEQ/L Carbon Dioxide Level 23.5 MEQ/L Anion Gap 15 MEQ/L Estimat Glomerular Filtration Rate 117 ML/MIN Salicylates Level 6.4 MG/DL Urine Opiates Screen NEG Acetaminophen Level LESS THAN 2.0 MCG/ML Urine Barbiturates Screen NEG Urine Amphetamines Screen NEG Urine Benzodiazepines Screen NEG Urine Cocaine Screen NEG Urine Cannabinoids Screen NEG Ethyl Alcohol Level 339 MG/DL Mental Status Examination Appearance: Appropriate Assessment & Plan Problem List: (1) Alcohol abuse with alcohol-induced mood disorder ICD Codes: F10.14 - Alcohol abuse with alcohol-induced mood disorder Assessment & Plan: On my psychiatric evaluation today the patient is calm, cooperative, tremulous and anxious due to alcohol withdrawal. He denies suicidal and homicidal ideation, he denies visual and auditory hallucinations. He seems to be clinically sober. He does not meet criteria for involuntary psychiatric admission. I will order Ativan 2 mg p.o. for withdrawal. Patient will be transferred to [facility] for detox. Assessment & Plan Estimated LOS: Merlin Mac MD Mar 02, 2018 16:07
== END 2018-03-02 10:39 | disposition home or self-care (01) ==
LOC: NEDAMB 21:21 → NEPJ 03-02 10:39
DX: F10.24 Alcohol dependence with alcohol-induced mood disorder (principal); F10.239 Alcohol dependence with withdrawal, unspecified; Y90.8 Blood alcohol level of 240 mg/100 ml or more; I10 Essential (primary) hypertension; J44.9 Chronic obstructive pulmonary disease, unspecified; Z21 Asymptomatic human immunodeficiency virus [HIV] infection status; Z86.19 Personal history of other infectious and parasitic diseases; Z88.0 Allergy status to penicillin; Z72.0 Tobacco use
CPT/HCPCS: 80053; 80307; 99284

== ENCOUNTER 2018-03-06 22:43 | Emergency (ER) | payer SELFPAY ==
[~2018-03-06] VITALS: Ht 175.3 cm; Wt 50.0 kg
[2018-03-06 22:50] VITALS: BP 133/78; PULSE 80; RESP 16; TEMP 98.5; O2SAT 96
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
--- NOTE | 2018-03-07 06:39 | PD ---
Data Data Last Documented VS Vital Signs Date Time Temp Pulse Resp B/P (MAP) Pulse Ox O2 Delivery O2 Flow Rate FiO2 03/06/18 22:50 98.5 80 16 133/78 (96) 96 Orders Orders Ed Discharge Order (03/07/18 06:38) MDM Medical Record Reviewed: Yes Supervised Visit with ALLISON: No Narrative Course 0645: This patient is no sober and is exhibiting no evidence of suicidality. He is stable for discharge. Diagnosis Primary Impression: Alcohol abuse with alcohol-induced mood disorder Patient Instructions: General Instructions, Alcohol Use Disorder (ED) Departure Forms: Tests/Procedures Scripts No Active Prescriptions or Reported Meds Disposition: DISCHARGE HOME Condition: Stable Steven Bonilla Mar 07, 2018 06:39
== END 2018-03-07 06:40 | disposition home or self-care (01) ==
LOC: NEPD 22:43
DX: F10.14 Alcohol abuse with alcohol-induced mood disorder (principal); F10.129 Alcohol abuse with intoxication, unspecified; F17.210 Nicotine dependence, cigarettes, uncomplicated; Y90.9 Presence of alcohol in blood, level not specified
CPT/HCPCS: 99281

== ENCOUNTER 2018-03-11 18:38 | Emergency (ER) | payer SELFPAY ==
[~2018-03-11] VITALS: Ht 175.3 cm; Wt 60.0 kg
[2018-03-11 18:48] VITALS: BP 135/80; PULSE 96; RESP 19; TEMP 98.4; O2SAT 97
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
[2018-03-11] MEDS ORDERED: IBUP-232 PO (20:19)
[2018-03-12] MEDS ORDERED: IBUPROFEN 600 MG TAB PO ONE (02:30)
== END 2018-03-12 06:01 | disposition home or self-care (01) ==
LOC: NEPD 18:38
DX: S00.83XA Contusion of other part of head, initial encounter (principal); F12.90 Cannabis use, unspecified, uncomplicated; F17.200 Nicotine dependence, unspecified, uncomplicated; F10.129 Alcohol abuse with intoxication, unspecified; Y09 Assault by unspecified means
CPT/HCPCS: 70450

== ENCOUNTER 2018-03-12 18:45 | Emergency (ER) | payer OTHER ==
[~2018-03-12] VITALS: Ht 175.3 cm; Wt 57.0 kg
[~2018-03-12 18:45] MED LIST: IBUP-232 PO
[2018-03-12 19:01] VITALS: BP 157/103; PULSE 80; RESP 16; TEMP 98.3; O2SAT 94
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
[2018-03-13 06:12] VITALS: BP 200/110; PULSE 103; RESP 16; TEMP 97.9; O2SAT 95
[2018-03-13] MEDS ORDERED: FLUMAZENIL 0.5 MG/5 ML VIAL IV PUSH PRN (06:15)
[2018-03-13] MEDS ORDERED: LORazepam 2 MG/ML VIAL IV PUSH PRN ×4 (06:15)
[2018-03-13] MEDS ORDERED: LORazepam 2 MG TAB PO PRN (06:15)
[2018-03-13] MEDS: LORazepam 1 MG TAB PO PRN ×2 (09:17→18:18)
[2018-03-13 22:22] VITALS: BP 179/99; PULSE 83; RESP 16; O2SAT 96
== END 2018-03-14 01:02 ==
LOC: NEPJ 18:45
DX: Z02.89 Encounter for other administrative examinations (principal); F10.14 Alcohol abuse with alcohol-induced mood disorder; R51 Headache; Y90.8 Blood alcohol level of 240 mg/100 ml or more; I10 Essential (primary) hypertension; F17.200 Nicotine dependence, unspecified, uncomplicated; Z79.899 Other long term (current) drug therapy; Z87.09 Personal history of other diseases of the respiratory system; Z86.79 Personal history of other diseases of the circulatory system
CPT/HCPCS: 80307; 99285